=== PATIENT | female | born 1965 | race Caucasian/White ===

== ENCOUNTER 2019-06-19 11:41 | Outpatient (CLI) | payer OTHER ==
--- NOTE | 2019-06-20 08:43 | XRAY Report ---
Reason: CONTUSION OF RT FOOT INITAL ENCOUNTER Procedure Date: 06/19/2019 Accession Number: [id number] / [id number] Procedure: XR - Foot 3 View RT CPT Code: Final Report FULL RESULT: EXAM: RIGHT FOOT RADIOGRAPHY EXAM DATE: 06/19/2019 12:04 PM. CLINICAL HISTORY: Contusion of right foot initial encounter. COMPARISON: None. TECHNIQUE: 3 views. FINDINGS: Bones: No fractures or bone lesions. No periosteal reaction. Joints: No subluxations. Soft Tissues: Soft tissue prominence at the lateral forefoot. No subcutaneous radiopaque foreign bodies. IMPRESSION: No fracture or periosteal reaction detected. [facility]
== END 2019-06-19 11:42 | disposition home or self-care (01) ==
LOC: DI 11:41
PROVIDERS: ATTEND Registered Nurse
DX: S90.31XA Contusion of right foot, initial encounter (principal)

== ENCOUNTER 2019-11-29 14:19 | Outpatient (CLI) | payer OTHER ==
--- NOTE | 2019-11-29 23:22 | XRAY Report ---
Reason: RIGHT SHOULDER PAIN Procedure Date: 11/29/2019 Accession Number: [id number] / [id number] Procedure: XR - Shoulder 3 View RT CPT Code: Final Report FULL RESULT: EXAM: RIGHT SHOULDER RADIOGRAPHY EXAM DATE: 11/29/2019 02:33 PM. CLINICAL HISTORY: RIGHT SHOULDER PAIN. COMPARISON: None. TECHNIQUE: 3 views. FINDINGS: Bones: Normal. No fracture or bone lesion. Joints: The glenohumeral and acromioclavicular joints are normal. Soft tissues: The visualized hemithorax is unremarkable. No soft tissue swelling. IMPRESSION: Normal shoulder radiography. [facility]
== END 2019-11-29 14:20 | disposition home or self-care (01) ==
LOC: DI 14:19
PROVIDERS: ATTEND Nurse Practitioner Family
DX: M25.511 Pain in right shoulder (principal)